=== PATIENT | male | born 1930 | race Caucasian/White ===

== ENCOUNTER → 2016-10-09 | Outpatient (CLI) | payer OTHER ==
[~2016-10-09] MED LIST: ACETAMINOPHEN PO; ASPIRIN PO; ASPIRIN81 M1 PO; ATENOLOL PO; ATENOLOL50 MG PO; CHEWABLE ASPIRI81 MG PO; CLONIDINE HCL0.1 MG PO; CLONIDINE PO; COREG PO; COREG12.5 MG PO; GLUCOPHAGE850 MG PO; HCTZ PO; HYDRALAZINE HCL50 MG PO; HYDROCHLOROTHIA25 MG PO; LEVAQUIN PO; METFORMIN HCL850 MG PO; METFORMIN PO; MULTI VITAMIN1 EACH PO; NORCO 5/325 TAB1 TAB PO; PRAVASTATIN SOD40 MG PO; PRILOSEC20 M1 PO; PRINIVIL20 M1 PO; SULFAMETHOXAZOL1 TA4 PO; TEKTURNA; TEKTURNA150 MG PO
--- NOTE | ~2016-10-09 | CR6 ---
[facility] A Service of [facility] RADIOLOGY TEXT RESULTS PATIENT: ROMIE MCLEAN SR LOCATION: [facility] : 30 UNIT #: [id number] AGE: [address]: Reagan Mazariegos MD SEX: M ORDER DR: [id number] [facility] [address] [place], [place] [address] [id number] O MR#: [id number] Acc #: [id number] NAME: ROMIE MCLEAN : 1930 SEX: M STUDY DATE/TIME: 10/09/2016 10:24 UNIT: [facility] ROOM: STUDY DESCRIPTION: CR Abdomen Portable Sng View Attending Physician: Reagan Mazariegos M.D. Referring Physician: Reagan Mazariegos M.D. Ordering Physician: Reagan Mazariegos M.D. Primary Care Physician: Michael Bazzi M.D. MEDICAL IMAGING REPORT This report is preliminary unless electronic signature is present EXAM Portable abdomen, 10/09/2016 10:24 hours HISTORY 86-year-old man with elevated PSA. Follow-up left kidney stones, abdominal pain for a few weeks. COMPARISON 04/05/2015 FINDINGS Single view of the abdomen and single view of the pelvis demonstrate a stone overlying the left kidney measuring 6.0 mm. This is a significantly decreased size in amount of stones as compared to 04/05/2015. There is calcification in the mid left pelvis measuring 5.0 mm, new from 04/05/2015 which could represent a ureteral calculus versus phlebolith. If the patient has hematuria, suggest followup CT stone protocol. There is underlying scoliosis and secondary degenerative change. No definite lytic or blastic lesions. IMPRESSION There is a 6.0 mm calcification projecting over the left mid kidney. This represents a decrease in the size and number of stones over the left kidney. There is a new 5.0 mm calcification in the left lower pelvis which could represent a distal ureteral calculus or a developing phlebolith. This does represent a change from 04/05/2015. If the patient has hematuria, follow-up CT of the abdomen and pelvis stone protocol would be recommended. Dictated by... Lucretia Nolan M.D. THIS IS AN ELECTRONICALLY VERIFIED REPORT [facility]. [facility] A Service of [facility] RADIOLOGY TEXT RESULTS PATIENT: ROMIE MCLEAN SR LOCATION: [facility] : 30 UNIT #: [id number] AGE: [address]: Reagan Mazariegos MD SEX: M ORDER DR: Lucretia Nolan M.D. at 10/10/2016 9:17 AM Xiomara TD: 10/09/2016 15:36 JOB #: [id number] MEDICAL IMAGING REPORT COPY
== END | disposition home or self-care (01) ==
LOC: CLAB 09:45
DX: R97.20 Elevated prostate specific antigen [PSA] (principal); N20.0 Calculus of kidney
CPT/HCPCS: 36415; 74000; G0103